=== PATIENT | male | born 1995 | race Two or more races ===

== ENCOUNTER 2018-06-09 13:19 | Outpatient (CLI) | payer OTHER | END 2018-06-09 13:29 | disposition home or self-care (01) | LOC: RAD 501 13:19 | DX: S82.61XA Displaced fracture of lateral malleolus of right fibula, initial encounter for closed fracture (principal) ==

== ENCOUNTER 2018-07-10 10:22 | Outpatient (CLI) | payer OTHER | END 2018-07-10 10:50 | disposition home or self-care (01) | LOC: RAD 501 10:22 | DX: M25.561 Pain in right knee (principal) ==

== ENCOUNTER 2022-05-27 15:34 | Emergency (ER) | payer OTHER ==
[~2022-05-27] VITALS: Ht 185.4 cm; Wt 131.5 kg
[2022-05-27] MEDS ORDERED: MONTELUKAST SOD10 MG PO (16:01)
== END 2022-05-27 21:19 | disposition home or self-care (01) ==
LOC: ER 15:34
DX: K29.70 Gastritis, unspecified, without bleeding (principal)